=== PATIENT | male | born 1975 | race American Indian/Alaskan Native ===

== ENCOUNTER 2021-01-26 14:34 | Emergency (ER) | payer OTHER ==
[2021-01-26 15:02] VITALS: BP 150/94
--- NOTE | 2021-01-26 15:59 | Emergency Department Report ---
ED Medical Clearance HPI - General Chief complaint: Recheck/Abnormal Lab/Rx Stated complaint: IRBESARTAN 300MG REFILLS Time Seen by Provider: 01/26/21 15:51 Source: patient Mode of arrival: Ambulatory Allergies/Adverse reactions: Allergies Allergy/AdvReac Type Severity Reaction Status Date / Time No Known Allergies Allergy Unverified 01/26/21 14:57 ED Review of Systems ROS: Stated complaint: IRBESARTAN 300MG REFILLS Other details as noted in HPI ED Past Medical Hx - Past Medical History Hx Hypertension: Yes Hx Diabetes: Yes - Surgical History Additional Surgical History: LEFT KNEE/ SINUS - Social History Smoking Status: Never Smoker Substance Use Type: None ED Physical Exam - General Limitations: No Limitations ED Course Vital Signs 01/26/21 14:59 Temperature 98.9 F Pulse Rate 85 Respiratory 18 Rate Blood Pressure 150/94 O2 Sat by Pulse 97 Oximetry ED Disposition Clinical Impression: Medication refill Disposition: 01 HOME / SELF CARE / HOMELESS Is pt being admited?: No Does the pt Need Aspirin: No Condition: Stable
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
== END 2021-01-26 16:09 | disposition home or self-care (01) ==
LOC: ED 14:34
DX: I10 Essential (primary) hypertension (principal)
CPT/HCPCS: 99281